=== PATIENT | female | born 1980 | race Caucasian/White ===

== ENCOUNTER → 2016-09-19 | Outpatient (CLI) | payer BC ==
--- NOTE | 2016-09-20 08:51 | REP ---
MRI RIGHT SHOULDER WITH AND WITHOUT CONTRAST: TECHNIQUE: Multiple sagittal, axial and coronal sequences pre- and post IV gadolinium with the intravenous administration of 13 mL. Palpable abnormality is marked at the superior aspect of the shoulder. There is an oval mass at that location measuring 2.0 x 5.8 x 6.1 cm. This is purely fat signal with no abnormal enhancement, consistent with a lipoma. It is directly superior to the acromion. It abuts the superior aspect of the deltoid muscle with no invasion. No other mass is seen. There is no abnormal enhancement. There are mild hypertrophic degenerative changes of the acromioclavicular joint. IMPRESSION: Palpable abnormality corresponds to a lipoma with no suspicious characteristics as discussed in detail above. Signed by Jose Celaya MD 09/23/2016 03:58 P
== END ==
LOC: M RAD 14:05
PROVIDERS: ATTEND Surgery
DX: D17.21 Benign lipomatous neoplasm of skin and subcutaneous tissue of right arm (principal)
CPT/HCPCS: 73223; A9576

== ENCOUNTER 2018-10-19 09:41 | Day surgery (SDC) | payer OTHER ==
[~2018-10-19] VITALS: Ht 167.6 cm; Wt 73.3 kg
[~2018-10-19 09:41] MED LIST: LR 1,000 ML IV ONE; MULTCAP PO; ceFAZolin SOD 1 GM in D5W MINI-BAG PLUS 50 ML IV ONE
[2018-10-19 10:37] LABS: URINE PREG TEST NEGATIVE (NEGATIVE)
[2018-10-19] MEDS ORDERED: ONDANSETRON 4MG/2ML VIAL (J2405) As Ordered ONE (12:34)
[2018-10-19] MEDS ORDERED: LIDOCAINE 2% INJ 100 MG/5 ML SDV (FOR ANES.) As Ordered ONE (12:34)
[2018-10-19] MEDS ORDERED: KETOROLAC 60 MG/2 ML VIAL (J1885) As Ordered ONE (12:34)
[2018-10-19] MEDS ORDERED: PROPOFOL 200 MG/20 ML VIAL As Ordered ONE ×2 (12:34→13:39)
[2018-10-19] MEDS ORDERED: fentaNYL 100 MCG/2 ML INJECTION (J3010) As Ordered ONE (12:35)
[2018-10-19] MEDS ORDERED: MIDAZOLAM INJ 2 MG/2 ML VIAL (J2250) As Ordered ONE (12:35)
[2018-10-19] MEDS ORDERED: BUPIVACAINE/EPIN 0.25% 30 ML VIAL As Ordered ONE (12:55)
[2018-10-19] MEDS ORDERED: ePHEDrine SULFATE 25 MG/5 ML(5MG/ML) SYRINGE As Ordered ONE (13:30)
--- NOTE | 2018-10-19 13:54 | RO ---
DATE OF PROCEDURE: 10/19/2018 PREOPERATIVE DIAGNOSIS: Lipoma right shoulder. POSTOPERATIVE DIAGNOSIS: Lipoma right shoulder (multilobulated 6 x 8 cm). PROCEDURE: Excision of multilobulated lipoma right shoulder. SURGEON: Martín Francisco MD TURN SUPERVISOR: ANESTHESIA: Intravenous (IV) sedation, plus local. ESTIMATED BLOOD LOSS (EBL): Minimal. FLUIDS: Crystalloid. BRIEF PROCEDURE SUMMARY: The patient was brought to the operating room, was given IV sedation, was prepped and draped in the usual sterile fashion. Local lidocaine mixed with epinephrine was infiltrated into the area surrounding the lipoma and a longitudinal incision was made over the top of the lipoma. Electrocautery was used cut through dermis, underlying subcutaneous tissue. However, this was relatively a superficial lipoma and once entering into this space it was obvious that this was a multilobulated lipoma and thus, slowly I was able to break down the compartments between the lipomas using some minimal blunt dissection but mostly electrocautery on these septations. Once this was opened up nicely and I was able to deliver these lipomas out of their individual compartments, the area was evaluated for hemostasis, which was clean and dry. Then, once again further evaluation of the area for additional lipomas that may be present were looked at and did not reveal any other significant abnormalities. No other significant lipomas. Thus, #3-0 Vicryl was used to approximate the dermis, #4-0 Vicryl was used to approximate the skin. Steri-Strips and dry sterile dressing was applied. The patient was awakened from her sedation, brought to the recovery room awake, alert and hemodynamically stable.
[2018-10-19 15:00] VITALS: BP 116/61
== END 2018-10-19 15:15 | disposition home or self-care (01) ==
LOC: M SDC 09:41
PROVIDERS: ATTEND Surgery
DX: D17.21 Benign lipomatous neoplasm of skin and subcutaneous tissue of right arm (principal)
CPT/HCPCS: 21930; 84703; 88304; J0690; J1885; J2250; J2405; J3010

== ENCOUNTER → 2021-11-26 | Outpatient (CLI) | payer OTHER ==
[~2021-11-26] MED LIST changes: -LR 1,000 ML IV ONE; -ceFAZolin SOD 1 GM in D5W MINI-BAG PLUS 50 ML IV ONE
== END ==
LOC: M WHC 09:11
PROVIDERS: ATTEND Obstetrics & Gynecology
DX: Z12.31 Encounter for screening mammogram for malignant neoplasm of breast (principal); Z79.3 Long term (current) use of hormonal contraceptives

== ENCOUNTER → 2023-03-10 | Outpatient (CLI) | payer OTHER | LOC: M WHC 14:56 | PROVIDERS: ATTEND Obstetrics & Gynecology | DX: Z12.31 Encounter for screening mammogram for malignant neoplasm of breast (principal) ==

== ENCOUNTER → 2023-03-24 | Outpatient (CLI) | payer OTHER | LOC: M WHC 13:56 | PROVIDERS: ATTEND Obstetrics & Gynecology | DX: Z12.31 Encounter for screening mammogram for malignant neoplasm of breast (principal) ==

== ENCOUNTER → 2024-11-25 | Outpatient (CLI) | payer OTHER | LOC: M WHC 09:31 | PROVIDERS: ATTEND Obstetrics & Gynecology | DX: Z12.31 Encounter for screening mammogram for malignant neoplasm of breast (principal) ==

== ENCOUNTER → 2024-12-08 | Outpatient (CLI) | payer OTHER | LOC: M WHC 07:48 | PROVIDERS: ATTEND Obstetrics & Gynecology | DX: R92.8 Other abnormal and inconclusive findings on diagnostic imaging of breast (principal); N60.11 Diffuse cystic mastopathy of right breast | CPT/HCPCS: 76642; 77065; G0279 ==